=== PATIENT | female | born 1990 | race Caucasian/White ===

== ENCOUNTER → 2021-05-28 | Outpatient (CLI) | payer OTHER ==
--- NOTE | 2021-05-28 19:03 | RAD ---
Two-view chest dated 05/28/2021 7:00 PM Comparison: None CLINICAL INDICATION: Chest pain FINDINGS: PA and lateral views obtained. Heart and mediastinal contours within normal limits. Lungs are clear. No consolidation or pleural effusion. No pneumothorax. IMPRESSION: No acute radiographic abnormality. Electronically signed by: Kiel Kebede MD (05/28/2021 7:00 PM) [facility]
== END ==
LOC: PMG 18:43
PROVIDERS: ATTEND Nurse Practitioner Family
DX: R07.9 Chest pain, unspecified (principal)
CPT/HCPCS: 71046